=== PATIENT | male | born 1965 | race Caucasian/White ===

== ENCOUNTER → 2019-05-20 | Outpatient (CLI) | payer BC | END | disposition home or self-care (01) | LOC: RAD 10:41 | DX: M54.5 Low back pain (principal); I70.0 Atherosclerosis of aorta ==

== ENCOUNTER 2022-06-16 11:21 | Inpatient (IN) | payer BC ==
[~2022-06-16] VITALS: Ht 172.7 cm; Wt 62.4 kg
[2022-06-16 11:29] VITALS: BP 98/58
[2022-06-16 12:22] LABS: HEMATOCRIT 30.3 % (42.0-52.0); MEAN CORPUSCULAR HGB 27.9 pg (27.0-31.0); MEAN CORPUSCULAR HGB CONC 33.7 g/dl (33.0-37.0); MEAN PLATELET VOLUME 7.5 fl (9.6-12.3); PLATELET COUNT AUTOMATED 626 10*3/uL (130-400); RED BLOOD COUNT 3.65 10*6/uL (4.50-5.90); RED CELL DISTRI WIDTH 15.2 % (0-14.5); WHITE BLOOD COUNT 13.8 10*3/uL (4.8-10.8)
[2022-06-16 12:29] LABS: MANUAL DIFF REFLEX YES
[2022-06-16 12:49] LABS: ALKALINE PHOSPHATASE 164 U/L (45-117); BUN 4 mg/dl (7-24); CHLORIDE 92 mmol/L (98-107); CREATININE 0.48 mg/dL (0.70-1.30); POTASSIUM 3.9 mmol/L (3.5-5.1); SGOT/AST 15 IU/L (3-35); SGPT/ALT 12 U/L (12-78); SODIUM 128 mmol/L (136-145); TOTAL PROTEIN 6.4 gm/dL (6.4-8.2)
[2022-06-16 13:01] LABS: BURR CELLS FEW; PLATELET SUFFICIENCY HIGH (NORMAL); POLYCHROMASIA SLIGHT; SCHISTOCYTES FEW; TOTAL CELLS COUNTED 100 #CELLS; TOXIC GRANULATION SLIGHT
[2022-06-16 13:02] LABS: ROULEAUX SLIGHT
[2022-06-16 14:36] VITALS: BP 103/54
[2022-06-16] MEDS ORDERED: LIPITOR40 MG PO (14:47)
[2022-06-16] MEDS ORDERED: GABAPENTIN100 M2 PO (14:47)
[2022-06-16] MEDS ORDERED: ASPIRIN ADULT L81 M1 PO (14:47)
[2022-06-16] MEDS ORDERED: METOPROLOL TART50 M1 PO (14:47)
[2022-06-16] MEDS ORDERED: CYCLOBENZAPRINE10 MG PO (14:47)
[2022-06-16] MEDS ORDERED: MELOXICAM15 MG PO (14:47)
[2022-06-16] MEDS ORDERED: AMLODIPINE BESY10 MG PO (14:47)
[2022-06-16 17:35] VITALS: BP 118/56
[2022-06-16 20:00] VITALS: BP 123/57
[2022-06-17] VITALS: BP 124/54
[2022-06-17 02:04] LABS: URINE CREATININE RANDOM 38.3 mg/dL
[2022-06-17 08:00] VITALS: BP 121/74
[2022-06-17 08:07] LABS: BASO % 0.4 % (0.0-1.0); EOS % 0.3 % (1.0-4.0); HEMATOCRIT 30.7 % (42.0-52.0); LYMPH # 1.4 10*3/uL (1.3-4.4); LYMPH % 15.4 % (27.0-41.0); MEAN CELL VOLUME 84.1 fl (80.0-94.0); MEAN CORPUSCULAR HGB 28.5 pg (27.0-31.0); MEAN CORPUSCULAR HGB CONC 33.9 g/dl (33.0-37.0); MEAN PLATELET VOLUME 7.5 fl (9.6-12.3); MONO # 1.5 10*3/uL (0.1-1.0); NEUT # 6.1 10*3/uL (2.3-7.9); NEUT % 66.8 % (47.0-73.0); PLATELET COUNT AUTOMATED 612 10*3/uL (130-400); RED BLOOD COUNT 3.65 10*6/uL (4.50-5.90); RED CELL DISTRI WIDTH 15.1 % (0-14.5); WHITE BLOOD COUNT 9.2 10*3/uL (4.8-10.8)
[2022-06-17 08:28] LABS: ALKALINE PHOSPHATASE 160 U/L (45-117); BUN 3 mg/dl (7-24); CHLORIDE 96 mmol/L (98-107); CREATININE 0.48 mg/dL (0.70-1.30); POTASSIUM 3.5 mmol/L (3.5-5.1); SGOT/AST 12 IU/L (3-35); SGPT/ALT 12 U/L (12-78); SODIUM 132 mmol/L (136-145); TOTAL PROTEIN 6.2 gm/dL (6.4-8.2)
[2022-06-17 12:00] VITALS: BP 107/42
[2022-06-17 13:37] LABS: ACT PARTIAL THROMBO TIME 36.6 SECONDS (20.0-32.1); INTERNATIONAL NORM RATIO 1.3 (2.0-3.5)
[2022-06-17 16:00] VITALS: BP 109/58
[2022-06-17 20:00] VITALS: BP 116/60
[2022-06-18] VITALS: BP 127/62
[2022-06-18 06:43] LABS: BASO % 0.4 % (0.0-1.0); EOS # 0.1 10*3/uL (0.0-0.4); EOS % 0.7 % (1.0-4.0); HEMATOCRIT 30.5 % (42.0-52.0); LYMPH # 1.7 10*3/uL (1.3-4.4); LYMPH % 16.1 % (27.0-41.0); MEAN CELL VOLUME 85.4 fl (80.0-94.0); MEAN CORPUSCULAR HGB 27.7 pg (27.0-31.0); MEAN CORPUSCULAR HGB CONC 32.5 g/dl (33.0-37.0); MEAN PLATELET VOLUME 7.6 fl (9.6-12.3); MONO # 1.5 10*3/uL (0.1-1.0); MONO % 13.9 % (3.0-9.0); NEUT # 7.2 10*3/uL (2.3-7.9); NEUT % 67.5 % (47.0-73.0); PLATELET COUNT AUTOMATED 614 10*3/uL (130-400); RED BLOOD COUNT 3.57 10*6/uL (4.50-5.90); RED CELL DISTRI WIDTH 15.3 % (0-14.5); WHITE BLOOD COUNT 10.7 10*3/uL (4.8-10.8)
[2022-06-18 07:12] LABS: BUN 5 mg/dl (7-24); CHLORIDE 97 mmol/L (98-107); CREATININE 0.54 mg/dL (0.70-1.30); POTASSIUM 3.1 mmol/L (3.5-5.1); SGOT/AST 11 IU/L (3-35); SGPT/ALT 11 U/L (12-78); SODIUM 131 mmol/L (136-145); TOTAL PROTEIN 6.7 gm/dL (6.4-8.2)
[2022-06-18 07:13] LABS: ALKALINE PHOSPHATASE 157 U/L (45-117)
[2022-06-18 08:00] VITALS: BP 104/56
[2022-06-18 12:00] VITALS: BP 124/65
[2022-06-18 16:00] VITALS: BP 122/50
[2022-06-18 20:00] VITALS: BP 105/63
[2022-06-19] VITALS (8 sets, daily range): BP systolic 83–126; BP diastolic 54–64
[2022-06-19 05:52] LABS: BUN 3 mg/dl (7-24); CHLORIDE 98 mmol/L (98-107); CREATININE 0.42 mg/dL (0.70-1.30); POTASSIUM 3.3 mmol/L (3.5-5.1); SODIUM 133 mmol/L (136-145)
[2022-06-19 06:07] LABS: BASO # 0.1 10*3/uL (0.0-0.1); BASO % 0.6 % (0.0-1.0); EOS # 0.1 10*3/uL (0.0-0.4); HEMATOCRIT 30.2 % (42.0-52.0); LYMPH # 1.8 10*3/uL (1.3-4.4); MEAN CELL VOLUME 85.3 fl (80.0-94.0); MEAN CORPUSCULAR HGB 27.7 pg (27.0-31.0); MEAN CORPUSCULAR HGB CONC 32.5 g/dl (33.0-37.0); MEAN PLATELET VOLUME 7.6 fl (9.6-12.3); MONO # 1.2 10*3/uL (0.1-1.0); NEUT # 6.5 10*3/uL (2.3-7.9); NEUT % 67.1 % (47.0-73.0); PLATELET COUNT AUTOMATED 647 10*3/uL (130-400); RED BLOOD COUNT 3.54 10*6/uL (4.50-5.90); RED CELL DISTRI WIDTH 15.1 % (0-14.5); WHITE BLOOD COUNT 9.8 10*3/uL (4.8-10.8)
[2022-06-19 06:20] LABS: RETICULOCYTE % 2.73 % (0.50-2.50)
[2022-06-19 14:08] LABS: TB1 Ag VALUE 0.05 IU/mL (.)
[2022-06-20] VITALS: BP 106/69
[2022-06-20 02:06] LABS: TOTAL PROTEIN, SERUM 6.2 g/dL (6.0-8.5)
[2022-06-20 06:51] LABS: MEAN CELL VOLUME 85.1 fl (80.0-94.0); MEAN CORPUSCULAR HGB 27.7 pg (27.0-31.0); MEAN CORPUSCULAR HGB CONC 32.5 g/dl (33.0-37.0); MEAN PLATELET VOLUME 7.4 fl (9.6-12.3); PLATELET COUNT AUTOMATED 638 10*3/uL (130-400); RED BLOOD COUNT 3.76 10*6/uL (4.50-5.90); RED CELL DISTRI WIDTH 15.4 % (0-14.5); WHITE BLOOD COUNT 13.6 10*3/uL (4.8-10.8)
[2022-06-20 07:02] LABS: MANUAL DIFF REFLEX YES
[2022-06-20 07:05] LABS: BUN 3 mg/dl (7-24); CHLORIDE 98 mmol/L (98-107); CREATININE 0.63 mg/dL (0.70-1.30); POTASSIUM 3.8 mmol/L (3.5-5.1); SODIUM 131 mmol/L (136-145)
[2022-06-20 07:41] LABS: ATYPICAL LYMPHS 2 % (0-0); PLATELET SUFFICIENCY HIGH (NORMAL); TOTAL CELLS COUNTED 100 #CELLS
[2022-06-20 07:42] LABS: MICROCYTOSIS SLIGHT; POLYCHROMASIA SLIGHT
[2022-06-20 07:44] LABS: BURR CELLS FEW
[2022-06-20 08:00] VITALS: BP 104/66
[2022-06-20 12:00] VITALS: BP 109/62
[2022-06-20 13:07] LABS: ACID FAST SPEC PROCESSING Concentration (.)
[2022-06-20 15:06] LABS: A/G RATIO 0.6 (0.7-1.7); ALBUMIN 2.4 g/dL (2.9-4.4); ALPHA-1-GLOBULIN 0.5 g/dL (0.0-0.4); ALPHA-2-GLOBULIN 1.2 g/dL (0.4-1.0); BETA GLOBULIN 0.8 g/dL (0.7-1.3); GAMMA GLOBULIN 1.2 g/dL (0.4-1.8); GLOBULIN, TOTAL 3.8 g/dL (2.2-3.9); M-SPIKE 0.3 g/dL (Not Observed)
[2022-06-20 16:00] VITALS: BP 102/52
[2022-06-20] MEDS ORDERED: NICODERM CQ1 EAC2 T (19:11)
[2022-06-20 20:00] VITALS: BP 114/65
[2022-06-21 08:00] VITALS: BP 117/75
[2022-06-21 12:00] VITALS: BP 93/49
[2022-06-21 16:00] VITALS: BP 112/61
[2022-06-21 20:00] VITALS: BP 122/64
[2022-06-22] VITALS: BP 123/61
[2022-06-22 07:17] LABS: BASO # 0.1 10*3/uL (0.0-0.1); BASO % 0.6 % (0.0-1.0); EOS # 0.2 10*3/uL (0.0-0.4); EOS % 2.1 % (1.0-4.0); HEMATOCRIT 30.6 % (42.0-52.0); LYMPH # 2.1 10*3/uL (1.3-4.4); LYMPH % 23.3 % (27.0-41.0); MEAN CELL VOLUME 86.2 fl (80.0-94.0); MEAN CORPUSCULAR HGB 27.6 pg (27.0-31.0); MEAN PLATELET VOLUME 7.7 fl (9.6-12.3); MONO # 1.2 10*3/uL (0.1-1.0); MONO % 13.4 % (3.0-9.0); NEUT # 5.4 10*3/uL (2.3-7.9); NEUT % 59.5 % (47.0-73.0); PLATELET COUNT AUTOMATED 595 10*3/uL (130-400); RED BLOOD COUNT 3.55 10*6/uL (4.50-5.90)
[2022-06-22 07:30] LABS: BUN 4 mg/dl (7-24); CHLORIDE 102 mmol/L (98-107); POTASSIUM 3.5 mmol/L (3.5-5.1); SODIUM 134 mmol/L (136-145)
[2022-06-22 08:00] VITALS: BP 95/66
[2022-06-22 12:00] VITALS: BP 106/59
[2022-06-22 16:00] VITALS: BP 122/60
[2022-06-22 20:00] VITALS: BP 118/76
[2022-06-23] VITALS: BP 103/56
[2022-06-23 05:15] LABS: BUN 7 mg/dl (7-24); CHLORIDE 101 mmol/L (98-107); CREATININE 0.56 mg/dL (0.70-1.30); POTASSIUM 3.5 mmol/L (3.5-5.1); SODIUM 135 mmol/L (136-145)
[2022-06-23 06:47] LABS: BASO # 0.1 10*3/uL (0.0-0.1); BASO % 1.1 % (0.0-1.0); EOS # 0.2 10*3/uL (0.0-0.4); EOS % 2.8 % (1.0-4.0); HEMATOCRIT 30.2 % (42.0-52.0); LYMPH # 2.1 10*3/uL (1.3-4.4); LYMPH % 27.9 % (27.0-41.0); MEAN CELL VOLUME 86.5 fl (80.0-94.0); MEAN CORPUSCULAR HGB 27.5 pg (27.0-31.0); MEAN CORPUSCULAR HGB CONC 31.8 g/dl (33.0-37.0); MEAN PLATELET VOLUME 7.8 fl (9.6-12.3); MONO # 0.9 10*3/uL (0.1-1.0); NEUT # 4.1 10*3/uL (2.3-7.9); NEUT % 55.3 % (47.0-73.0); PLATELET COUNT AUTOMATED 682 10*3/uL (130-400); RED BLOOD COUNT 3.49 10*6/uL (4.50-5.90); WHITE BLOOD COUNT 7.4 10*3/uL (4.8-10.8)
[2022-06-23 08:00] VITALS: BP 94/54
[2022-06-23 12:00] VITALS: BP 123/62
[2022-06-23 16:00] VITALS: BP 136/67
[2022-06-23 20:00] VITALS: BP 120/68
[2022-06-24] VITALS: BP 118/61
[2022-06-24 08:00] VITALS: BP 119/68
[2022-06-24 12:00] VITALS: BP 103/82
[2022-06-26 00:06] LABS: HISTOPLASMA MYCLIAL AB Negative (Neg:<1:2)
== END 2022-06-24 13:42 | disposition short-term general hospital (02) | DRG 871 ==
LOC: ED 11:21 → 4E 13:30 → EDHOLD 13:30 → 4E 15:53
PROVIDERS: Internal Medicine Critical Care Medicine; Internal Medicine Infectious Disease; Nurse Practitioner Family; Registered Nurse; ADMIT Internal Medicine; ATTEND Internal Medicine
PROC: 0BC18ZZ Extirpation of Matter from Trachea, Via Natural or Artificial Opening Endoscopic (ICD-10-PCS; principal; 2022-06-19)
PROC: 0BC98ZZ Extirpation of Matter from Lingula Bronchus, Via Natural or Artificial Opening Endoscopic (ICD-10-PCS; 2022-06-19)
PROC: 0BC48ZZ Extirpation of Matter from Right Upper Lobe Bronchus, Via Natural or Artificial Opening Endoscopic (ICD-10-PCS; 2022-06-19)
PROC: 0BC88ZZ Extirpation of Matter from Left Upper Lobe Bronchus, Via Natural or Artificial Opening Endoscopic (ICD-10-PCS; 2022-06-19)
PROC: 0BC58ZZ Extirpation of Matter from Right Middle Lobe Bronchus, Via Natural or Artificial Opening Endoscopic (ICD-10-PCS; 2022-06-19)
PROC: 0BC38ZZ Extirpation of Matter from Right Main Bronchus, Via Natural or Artificial Opening Endoscopic (ICD-10-PCS; 2022-06-19)
PROC: 0BC78ZZ Extirpation of Matter from Left Main Bronchus, Via Natural or Artificial Opening Endoscopic (ICD-10-PCS; 2022-06-19)
PROC: 0BC68ZZ Extirpation of Matter from Right Lower Lobe Bronchus, Via Natural or Artificial Opening Endoscopic (ICD-10-PCS; 2022-06-19)
PROC: 0BCB8ZZ Extirpation of Matter from Left Lower Lobe Bronchus, Via Natural or Artificial Opening Endoscopic (ICD-10-PCS; 2022-06-19)
DX: A41.9 Sepsis, unspecified organism (principal); E43 Unspecified severe protein-calorie malnutrition; J69.0 Pneumonitis due to inhalation of food and vomit; E87.1 Hypo-osmolality and hyponatremia; C79.51 Secondary malignant neoplasm of bone; T17.590A Other foreign object in bronchus causing asphyxiation, initial encounter; Z20.822 Contact with and (suspected) exposure to COVID-19; I10 Essential (primary) hypertension; G89.29 Other chronic pain; J40 Bronchitis, not specified as acute or chronic; E78.00 Pure hypercholesterolemia, unspecified; X58.XXXA Exposure to other specified factors, initial encounter; Y93.89 Activity, other specified; Y92.89 Other specified places as the place of occurrence of the external cause; Y99.8 Other external cause status; R91.8 Other nonspecific abnormal finding of lung field; Z68.20 Body mass index [BMI] 20.0-20.9, adult; J98.4 Other disorders of lung

== ENCOUNTER → 2022-07-08 | Outpatient (CLI) | payer BC ==
[~2022-07-08] MED LIST: AMLODIPINE BESY10 MG PO; ASPIRIN ADULT L81 M1 PO; CYCLOBENZAPRINE10 MG PO; GABAPENTIN100 M2 PO; LIPITOR40 MG PO; MELOXICAM15 MG PO; METOPROLOL TART50 M1 PO; NICODERM CQ1 EAC2 T
[2022-07-08 12:21] LABS: BASO # 0.1 10*3/uL (0.0-0.1); BASO % 0.9 % (0.0-1.0); EOS # 0.3 10*3/uL (0.0-0.4); EOS % 3.2 % (1.0-4.0); HEMATOCRIT 38.8 % (42.0-52.0); LYMPH # 2.2 10*3/uL (1.3-4.4); LYMPH % 26.4 % (27.0-41.0); MEAN CELL VOLUME 89.6 fl (80.0-94.0); MEAN CORPUSCULAR HGB 28.4 pg (27.0-31.0); MEAN CORPUSCULAR HGB CONC 31.7 g/dl (33.0-37.0); MEAN PLATELET VOLUME 8.1 fl (9.6-12.3); MONO # 0.8 10*3/uL (0.1-1.0); MONO % 9.3 % (3.0-9.0); NEUT # 4.9 10*3/uL (2.3-7.9); NEUT % 59.7 % (47.0-73.0); PLATELET COUNT AUTOMATED 676 10*3/uL (130-400); RED BLOOD COUNT 4.33 10*6/uL (4.50-5.90); WHITE BLOOD COUNT 8.2 10*3/uL (4.8-10.8)
[2022-07-08 12:42] LABS: BUN 11 mg/dl (7-24); CHLORIDE 102 mmol/L (98-107); CREATININE 0.63 mg/dL (0.70-1.30); POTASSIUM 4.4 mmol/L (3.5-5.1); SGOT/AST 13 IU/L (3-35); SGPT/ALT 16 U/L (12-78); SODIUM 136 mmol/L (136-145); TOTAL PROTEIN 7.9 gm/dL (6.4-8.2)
[2022-07-08 12:44] LABS: ALKALINE PHOSPHATASE 313 U/L (45-117)
== END ==
LOC: LAB 12:03
DX: J86.9 Pyothorax without fistula (principal)

== ENCOUNTER 2023-02-02 11:50 | Emergency (ER) | payer BC ==
[~2023-02-02] VITALS: Ht 172.7 cm; Wt 72.6 kg
[2023-02-02] VITALS (7 sets, daily range): BP systolic 112–122; BP diastolic 60–70
[~2023-02-02 11:50] MED LIST changes: +ATORVASTATIN CA40 M1 PO; +BUSPIRONE HCL10 MG PO; +LISINOPRIL10 M1 PO; +LORAZEPAM0.5 M1 PO; +NEURONTIN400 MG PO; +NUBEQA300 MG PO; +OXYCODONE HCL10 M1 PO; +PREDNISONE10 M1 PO; +PROCHLORPERAZIN10 MG PO; +PROVENTIL HFA6.7 GM INH; +TAMSULOSIN HCL0.4 MG PO; +TRIPLE ANTIBI28.4 G2 T; +VIBRAMYCIN100 MG PO
[2023-02-02 12:28] LABS: BASO # 0.1 10*3/uL (0.0-0.1); BASO % 0.4 % (0.0-1.0); EOS # 0.4 10*3/uL (0.0-0.4); EOS % 2.3 % (1.0-4.0); HEMATOCRIT 22.3 % (42.0-52.0); LYMPH # 1.6 10*3/uL (1.3-4.4); LYMPH % 9.9 % (27.0-41.0); MEAN CELL VOLUME 92.1 fl (80.0-94.0); MEAN CORPUSCULAR HGB 29.8 pg (27.0-31.0); MEAN CORPUSCULAR HGB CONC 32.3 g/dl (33.0-37.0); MEAN PLATELET VOLUME 8.4 fl (9.6-12.3); MONO # 1.2 10*3/uL (0.1-1.0); MONO % 7.8 % (3.0-9.0); NEUT # 12.4 10*3/uL (2.3-7.9); NEUT % 79.1 % (47.0-73.0); PLATELET COUNT AUTOMATED 785 10*3/uL (130-400); RED BLOOD COUNT 2.42 10*6/uL (4.50-5.90); RED CELL DISTRI WIDTH 15.9 % (0-14.5); WHITE BLOOD COUNT 15.7 10*3/uL (4.8-10.8)
[2023-02-02 12:47] LABS: ALKALINE PHOSPHATASE 65 U/L (46-116); BUN 13 mg/dl (9-23); CHLORIDE 97 mmol/L (98-107); POTASSIUM 3.8 mmol/L (3.4-5.1); TOTAL PROTEIN 6.7 gm/dL (6.0-8.0)
[2023-02-02 12:49] LABS: SGPT/ALT < 7 U/L (10-49)
== END 2023-02-02 16:20 ==
LOC: ED 11:50
PROVIDERS: Student in an Organized Health Care Education/Training Program
DX: D64.9 Anemia, unspecified (principal); Z79.899 Other long term (current) drug therapy; Z79.82 Long term (current) use of aspirin

== ENCOUNTER → 2023-03-09 | Outpatient (CLI) | payer BC ==
[2023-03-09 13:57] LABS: BILIRUBIN Negative (Negative); BLOOD 2+ (Negative); CLARITY Clear (Clear); COLOR Yellow (Yellow); GLUCOSE Negative (Negative); KETONE Negative (Negative); LEUKO ESTERASE Negative (Negative); NITRITE Negative (Negative); PH 6.5 (4.5-8.0); UROBILINOGEN 0.2 E.U./dl (0.0-1.0)
[2023-03-09 14:20] LABS: BACTERIA 1+; RBC 21-30 rbc/hpf (0-2)
== END | disposition home or self-care (01) ==
LOC: LAB 13:32
PROVIDERS: ATTEND Internal Medicine
DX: R31.9 Hematuria, unspecified (principal)

== ENCOUNTER → 2023-03-27 | Outpatient (CLI) | payer BC ==
[2023-03-27 15:12] LABS: URINE CREATININE RANDOM 110.68 mg/dL
[2023-03-28 06:08] LABS: HEPATITIS B SURFACE AG Negative (Negative)
[2023-03-31 14:09] LABS: ALBUMIN, URINE RANDOM 71.6 % (.); ALPHA-1-GLOBULIN, URINE 5.9 % (.); ALPHA-2-GLOBULIN, URINE 5.3 % (.); GAMMA GLOBULIN, URINE 5.6 % (.); M-SPIKE % Comment: % (Not Observed)
== END | disposition home or self-care (01) ==
LOC: LAB 13:47
PROVIDERS: ATTEND Internal Medicine Nephrology
DX: R80.9 Proteinuria, unspecified (principal)

== ENCOUNTER → 2023-04-25 | Outpatient (CLI) | payer BC | END | disposition home or self-care (01) | LOC: US 00:09 | PROVIDERS: ATTEND Internal Medicine | DX: K43.9 Ventral hernia without obstruction or gangrene (principal) ==